=== PATIENT | male | born 1960 | race Caucasian/White ===

== ENCOUNTER 2017-07-14 16:41 | Emergency (ER) | payer BC, OTHER ==
[2017-07-14] MEDS: ONDANSETRON 4 MG INJ IV (17:43)
[2017-07-14] MEDS: LACTATED RINGER'S 1,000 ML IV (17:43)
[2017-07-14] MEDS: KETOROLAC 30 MG INJ IV (17:43)
[2017-07-14 17:58] LABS: ADD MAN DIFF? NO
[2017-07-14 18:01] LABS: BASOPHIL # 0.1 10^3/ul (0.0-0.1); BASOPHILS % 0.5 % (0.0-2.0); EOSINOPHILS # 0.1 10^3/ul (0.0-0.5); EOSINOPHILS % 0.6 % (0.0-7.0); HEMATOCRIT 44.4 % (42.0-52.0); HEMOGLOBIN 14.9 g/dl (14.0-18.0); LYMPHOCYTES # 0.7 10^3/ul (0.8-2.9); LYMPHOCYTES % 6.1 % (15.0-51.0); MEAN CORPUSCULAR HEMOGLOBIN 29.4 pg (29.0-33.0); MEAN CORPUSCULAR HGB CONC 33.6 g/dl (32.0-37.0); MEAN CORPUSCULAR VOLUME 87.7 fl (82.0-101.0); MEAN PLATELET VOLUME 9.8 fl (7.4-10.4); MONOCYTE # 1.3 10^3/ul (0.3-0.9); NEUTROPHIL # 9.8 10^3/ul (1.6-7.5); NEUTROPHILS % 81.2 % (39.0-77.0); PLATELET COUNT 177 10^3/UL (140-415); RED BLOOD COUNT 5.06 10^6/ul (4.70-6.10)
[2017-07-14 18:22] LABS: ALANINE AMINOTRANSFERASE 31 IU/L (13-69); ALBUMIN 3.9 g/dl (3.3-4.9); ALBUMIN/GLOBULIN RATIO 1.02; ALKALINE PHOSPHATASE 145 IU/L (42-121); ANION GAP 15 (8-16); ASPARTATE AMINO TRANSFERASE 24 IU/L (15-46); BILIRUBIN,INDIRECT 1.1 mg/dl (0-1.1); BILIRUBIN,TOTAL 1.1 mg/dl (0.2-1.3); BLOOD UREA NITROGEN 15 mg/dl (7-20); CARBON DIOXIDE 26 mmol/L (21-31); CHLORIDE 103 mmol/L (97-110); CREATININE 0.92 mg/dl (0.61-1.24); GLUCOSE 147 mg/dl (70-220); POTASSIUM 3.7 mmol/L (3.5-5.1); SODIUM 140 mmol/L (135-144); TOTAL PROTEIN 7.7 g/dl (6.1-8.1); URIC ACID 6.2 mg/dl (3.1-7.9)
[2017-07-14 18:38] LABS: C-REACTIVE PROTEIN 13.3 mg/dl (0.0-0.9)
[2017-07-14] MEDS: HYDROmorphONE 1 MG/5 ML IV SYRINGE IV (18:47)
[2017-07-14 19:08] LABS: ERYTHROCYTE SEDIMENTATION RATE 20 mm/Hr (0-20)
[2017-07-14] MEDS: LISINOPRIL 20 MG TAB PO (20:10)
[2017-07-14] MEDS: DEXAMETHASONE 10 MG/ML 1 ML INJ IV (20:15)
== END 2017-07-14 20:44 | disposition home or self-care (01) ==
LOC: FTE 16:41
DX: M25.562 Pain in left knee (principal); I10 Essential (primary) hypertension
CPT/HCPCS: 20610; 36415; 73562; 80053; 84560; 85025; 85651; 86140; 93005; 96374; 96375; 99285-25

== ENCOUNTER 2017-07-17 08:26 | Emergency (ER) | payer BC ==
[2017-07-17] MEDS: HYDROmorphONE 2 MG/ML SYG IM (08:57)
[2017-07-17] MEDS: ONDANSETRON (ODT) 4 MG TAB ODT (08:58)
[2017-07-17 09:03] LABS: URINE BLOOD (Dip) POC 2+ (NEGATIVE); URINE GLUCOSE (Dip) POC Negative (NEGATIVE); URINE KETONES (Dip) POC Negative (NEGATIVE); URINE LEUKOCYTE EST (Dip) POC 1+ (NEGATIVE); URINE NITRITE (Dip) POC Negative (NEGATIVE); URINE TOTAL PROTEIN POC 2+ (NEGATIVE)
== END 2017-07-17 09:43 | disposition home or self-care (01) ==
LOC: FTE 08:26
DX: N30.90 Cystitis, unspecified without hematuria (principal); I10 Essential (primary) hypertension
CPT/HCPCS: 81003; 96372; 99284-25

== ENCOUNTER 2017-07-20 09:40 | Emergency (ER) | payer BC ==
[2017-07-20] MEDS ORDERED: SOD CHLORIDE 0.9% 1,000 ML IV (10:22)
[2017-07-20] MEDS: LACTATED RINGER'S 1,000 ML IV (10:42)
[2017-07-20 11:03] LABS: ADD MAN DIFF? NO
[2017-07-20 11:08] LABS: WHITE BLOOD COUNT 16.3 10^3/ul (4.8-10.8)
[2017-07-20 11:08] LABS: ABNORMAL IP MESSAGE 1; BASOPHIL # 0.1 10^3/ul (0.0-0.1); BASOPHILS % 0.4 % (0.0-2.0); EOSINOPHILS # 0.1 10^3/ul (0.0-0.5); EOSINOPHILS % 0.5 % (0.0-7.0); HEMATOCRIT 42.9 % (42.0-52.0); HEMOGLOBIN 14.4 g/dl (14.0-18.0); LYMPHOCYTES # 1.5 10^3/ul (0.8-2.9); LYMPHOCYTES % 9.5 % (15.0-51.0); MEAN CORPUSCULAR HEMOGLOBIN 29.6 pg (29.0-33.0); MEAN CORPUSCULAR HGB CONC 33.6 g/dl (32.0-37.0); MEAN CORPUSCULAR VOLUME 88.3 fl (82.0-101.0); MEAN PLATELET VOLUME 10.1 fl (7.4-10.4); NEUTROPHIL # 12.1 10^3/ul (1.6-7.5); NEUTROPHILS % 74.3 % (39.0-77.0); PLATELET COUNT 277 10^3/UL (140-415); POSITIVE DIFF @See below; RED BLOOD COUNT 4.86 10^6/ul (4.70-6.10); RED CELL DISTRIBUTION WIDTH 14.6 % (11.5-14.5)
[2017-07-20 11:12] LABS: ADD UMIC YES; UR ASCORBIC ACID NEGATIVE (NEGATIVE); UR BILIRUBIN (Dip) NEGATIVE (NEGATIVE); UR BLOOD (Dip) NEGATIVE (NEGATIVE); UR CLARITY CLEAR (CLEAR); UR COLOR YELLOW (YELLOW); UR GLUCOSE (Dip) NEGATIVE (NEGATIVE); UR KETONES (Dip) NEGATIVE (NEGATIVE); UR LEUKOCYTE ESTERASE (Dip) TRACE Leu/ul (NEGATIVE); UR NITRITE (Dip) NEGATIVE (NEGATIVE); UR RBC 7 /HPF (0-5); UR SPECIFIC GRAVITY (Dip) 1.016 (1.003-1.030); UR TOTAL PROTEIN (Dip) NEGATIVE (NEGATIVE); UR UROBILINOGEN (Dip) NEGATIVE (NEGATIVE); UR WBC 8 /HPF (0-5)
[2017-07-20] MEDS: HYDROmorphONE 1 MG/5 ML IV SYRINGE IV (11:20)
[2017-07-20 11:24] LABS: ALANINE AMINOTRANSFERASE 46 IU/L (13-69); ALBUMIN 3.2 g/dl (3.3-4.9); ALBUMIN/GLOBULIN RATIO 0.84; ALKALINE PHOSPHATASE 140 IU/L (42-121); ANION GAP 13 (8-16); ASPARTATE AMINO TRANSFERASE 26 IU/L (15-46); BILIRUBIN,INDIRECT 0.8 mg/dl (0-1.1); BILIRUBIN,TOTAL 0.8 mg/dl (0.2-1.3); BLOOD UREA NITROGEN 27 mg/dl (7-20); CALCIUM 8.9 mg/dl (8.4-10.2); CARBON DIOXIDE 29 mmol/L (21-31); CHLORIDE 105 mmol/L (97-110); CREATININE 1.07 mg/dl (0.61-1.24); GLUCOSE 121 mg/dl (70-220); POTASSIUM 4.2 mmol/L (3.5-5.1); SODIUM 143 mmol/L (135-144)
[2017-07-20] MEDS: CEFTRIAXONE 1 GM/50 ML (PMX) 50 ML IVPB (12:04)
== END 2017-07-20 12:45 | disposition home or self-care (01) ==
LOC: FTE 09:40
DX: M25.562 Pain in left knee (principal); I10 Essential (primary) hypertension
CPT/HCPCS: 36415; 80053; 81001; 85025; 87086; 87591; 96374; 96375; 99284-25